=== PATIENT | female | born 1950 | race Caucasian/White ===

== ENCOUNTER → 2019-02-24 | Outpatient (CLI) | payer MEDICARE, OTHER ==
[~2019-02-24] MED LIST: DIPH25TA82 PO
--- NOTE | 2019-02-24 08:50 | Diagnostic Imaging Report ---
INDICATION: Abdominal pain. TECHNIQUE: Gallbladder sonography was performed in the routine fashion. FINDINGS: The liver shows slight increased echogenicity, compatible with fatty change. There is no focal liver lesion seen. The gallbladder shows multiple prominent stones as well as a small amount of sludge. The gallbladder wall is not appreciably thickened. The common duct is borderline in size measuring 6 mm. The pancreas appears unremarkable to the extent seen. The right kidney measures 8.3 cm in length and appears normal. There is no ascites. The sonographic Hamilton's sign is negative. The portal vein is patent with hepatopetal flow. IMPRESSION: There are multiple gallstones in the gallbladder as well as some sludge. The gallbladder wall is not appreciably thickened. There is borderline size of the common duct measuring 6 mm. Dictated by: Dictated on workstation # [id number]
== END ==
LOC: RAD 07:53
PROVIDERS: ATTEND Nurse Practitioner Family
DX: K80.20 Calculus of gallbladder without cholecystitis without obstruction (principal)
CPT/HCPCS: 76705

== ENCOUNTER 2019-03-10 12:43 | Outpatient (CLI) | payer MEDICARE, OTHER ==
[~2019-03-10] VITALS: Ht 172.7 cm; Wt 83.8 kg
[2019-03-10 12:55] VITALS: BP 130/70
[2019-03-10] MEDS ORDERED: ATOR40TA PO (13:13)
[2019-03-10] MEDS ORDERED: AMLO5TAB9 PO (13:13)
[2019-03-12] MEDS ORDERED: HYDR-3816 PO (08:21)
== END 2019-03-10 13:10 | disposition home or self-care (01) ==
LOC: PREOP 12:43
PROVIDERS: ATTEND Surgery
DX: Z01.818 Encounter for other preprocedural examination (principal)
CPT/HCPCS: 87081

== ENCOUNTER → 2020-01-28 | Outpatient (CLI) | payer MEDICARE, OTHER ==
[~2020-01-28] MED LIST changes: +AMLO5TAB9 PO; +ATOR40TA PO; +HYDR-34 PO
--- NOTE | 2020-01-28 12:44 | Diagnostic Imaging Report ---
INDICATION: Routine screening. Comparison is made with prior mammogram 06/10/2009. 2-D and 3-D bilateral screening mammography was performed with CAD. Scattered fibroglandular densities are identified bilaterally. Intraparenchymal lymph node in the outer right breast appears stable. There are benign calcifications in the left breast. No dominant mass or malignant appearing microcalcifications are seen. IMPRESSION: BI-RADS Category 2 No mammographic features suspicious for malignancy are identified. ACR BI-RADS Category 2: Benign findings. Result letter will be mailed to the patient. Note: At least 10% of breast cancer is not imaged by mammography. Dictated by: Dictated on workstation # [id number]
== END ==
LOC: RAD 10:45
PROVIDERS: ATTEND Nurse Practitioner Family
DX: Z12.31 Encounter for screening mammogram for malignant neoplasm of breast (principal)
CPT/HCPCS: 77063; 77067